=== PATIENT | male | born 1970 | race Caucasian/White ===

== ENCOUNTER → 2023-12-07 06:34 | Day surgery (SDC) | payer OTHER, SELFPAY ==
[2023-12-07 09:13] LABS: Glucose - Point of Care 126 mg/dl (70-99)
== END ==
LOC: GI 06:34
PROVIDERS: ATTENDING PHYSICIAN Internal Medicine Gastroenterology
DX: K31.89 Other diseases of stomach and duodenum (principal); D50.9 Iron deficiency anemia, unspecified; K64.8 Other hemorrhoids; R04.0 Epistaxis
CPT/HCPCS: 45378; 43239; 88305; 82962; 88342

== ENCOUNTER 2023-12-11 09:51 | Emergency (ER) | payer OTHER, SELFPAY ==
[2023-12-11 09:53] VITALS: BP 158/110
--- NOTE | 2023-12-11 10:15 | ED.GENMED ---
History of Present Illness
General
Chief Complaint: Fall
Source: patient
Exam Limitations: none
Time Seen by Provider: 12/11/23 10:02
Nursing documentation reviewed up to this point in time: agreed with
Travel History
Have you had any contact with someone who has COVID-19?: No
Do you have any symptoms of coronavirus? Fever > 100 degrees, chills, cough, shortness of breath, sore throat, loss of taste or smell, muscle aches, or headache?: No
History of Present Illness
History of Present Illness:
52-year-old male past medical history of insulin-dependent diabetes hypertension presents to the ER for evaluation. Patient reports he got out of the bed in the middle of the night (around 1-2 am ) to use the bathroom. He felt lightheaded and had
a witnessed syncopal episode by his . He reports his said she heard a thud and found him on the ground. He does remember feeling lightheaded while getting up to use the bathroom and the next thing he remembers is his on the floor with
him. He reports his told him it took him about a minute to wake up. He did get up and go back to bed. He woke up this morning with bruising to his left orbital region and mild discomfort to left anterior rib area when taking a deep breath.
He denies any headache nausea vomiting. He is not on blood thinners. He does admit however that he just had a endoscopy and colonoscopy on Wednesday. Denies any black or dark stool.
Past History
Past History
ED Past Medical History: Asthma, HTN, IDDM, Hypothyroidism and Other (MIgraines)
ED Past Surgical History: None
Social History
Tobacco: Non-smoker
Alcohol: None
Personal:
Living: with family
Employment: Employed
Phy Exam
General Physical Exam
General Presentation: no apparent distress
General age: appears stated age
General Skin: warm and dry
General Habitus: normal
General Mental: alert
General Hydration: appears well hydrated
ENT Exam
ENT Exam: EOMI, neck supple and other (Patient with ecchymosis to left orbit mild tenderness no entrapment no crepitus)
Cardiovascular Exam
Cardiovascular Exam: regular rate/rhythm, no murmur and normal peripheral pulses
Pulmonary Exam
Pulmonary Exam: lungs clear, no respiratory distress and other (minimal left anterior chest tenderness no ecchymosis/no crepitus no abrasions )
Gastrointestinal Exam
Gastrointestinal Exam: non tender and soft
Neurological Exam
Neurological Exam: alert and oriented x3
Musculoskeletal Exam
Musculoskeletal Exam: full ROM and other (No obvious head injury on exam there is ecchymosis to orbit as documented above no bony cervical spine tenderness)
Skin Exam
Skin Exam: normal color and warm/dry
Psychiatric Exam
Psychiatric Exam: normal mood/affect
Course
Orders/Labs/Results
Orders:
Orders
12/11/23 10:14
Electrocardiogram (*1) Stat
Reason for Study: Abdominal Pain
CT Head W/o Iv Contrast Urgent
Comment:
Reason For Exam: trauma
CT Orbits W/o Iv Contrast Urgent
Comment:
Reason For Exam: left eye ecchymosis/tenderness
Cardiac Monitoring- Treatment ONCE
EKG- Treatment ONCE
IV Insert/Care/Rem.- Treatment PRN
Orthostatic VS- Treatment ONCE
0.9% Sodium Chloride 1000 ml [Nss] 1,000 ml IV BOLUS
12/11/23 10:22
Complete Blood Count/With Diff Urgent
Comprehensive Metabolic Panel Urgent
12/11/23 11:39
Ribs, Left 3 View W/PA Chest CR [CR Ribs-left 3 Vw W/pa Chest] Urgent
Comment:
Reason For Exam: trauma
12/11/23 13:30
Tetanus/Diphth/Acelpertussis [Adacel] 0.5 ml IM .ONCE ONE
Abnormal Lab Results
12/11/23
10:22
MPV 10.8 H fL
(7.4-10.4)
Absolute Neuts (auto) 7.4 H 10^3/uL
(1.4-6.5)
Lymphocytes % 19.3 L %
(20.5-51.1)
Sodium 134 L mmol/L
(135-145)
Creatinine 0.6 L mg/dL
(0.7-1.3)
Glucose 171 H mg/dl
(70-99)
12/11/23 10:22
12/11/23 10:22
Vital Signs
Initial and Last Documented VS:
Initial Vital Signs
Temp Pulse Resp BP Pulse Ox
98.2 F 110 16 158/110 98
12/11/23 09:53 12/11/23 09:53 12/11/23 09:53 12/11/23 09:53 12/11/23 09:53
Last Documented Vital Signs
Temp Pulse Resp BP Pulse Ox
98.2 F 101 16 161/87 98
12/11/23 09:53 12/11/23 13:00 12/11/23 13:00 12/11/23 13:00 12/11/23 13:00
Project Product Manager consulted with Physician
Project Product Manager consulted with physician?: Yes
Name of Physician Consulted: Presley
MDM/Problems Addressed
Differential Diagnosis Includes:
not limited to:
Syncope, orbital fracture first contusion rib fracture versus contusion dehydration anemia electrolyte abnormality
MDM/Problems Addressed:
Patient with syncopal episode in the middle of the night. Patient presented to the ER complaining of bruising to left orbit mild discomfort to left ribs when taking a deep breath. Patient presents awake alert in no acute distress with obvious
ecchymosis to the left orbital region. Patient awake alert no bony cervical spine tenderness. Patient denies any chest pain shortness of breath. Patient recently had endoscopy colonoscopy several days ago. He is not on blood thinners. Patient
initially mild tachycardic in triage. Patient with a stable hemoglobin of 14.[address] head and orbits negative. No acute findings on EKG. mild discomfort with palpation of left anterior rib area no ecchymosis lungs are
clear not hypoxic will check chest x-ray.
Chest x-ray negative patient no acute distress looks well stable for discharge home
*Radiology
Radiology exam reviewed: radiology read reviewed
*Pulse Oximetry
Patient hypoxic: no
*Critical Care Note
Total Time (30-74mins, 75-104mins- exclusive of procedures): Not Applicable
ED Attending Note
-
Portions of this chart may have been created with voice recognition software.� Occasional wrong word or��sound alike� substitutions may have occurred due to the inherent limitations of voice recognition software.
Discharge Plan
Departure
Patient Disposition: Home (Routine Discharge)
Date of Disposition: 12/11/23
Time of Disposition: 13:31
Patient with high blood pressure during this ER visit?: Yes
Condition: Fair
Covid-19: Not Applicable
Discharge Problem:
Syncope, Contusion, Laceration
Instructions: Head Injury in Adults (DC), Contusion (DC), Syncope (Fainting) (DC), Abrasions ED, BLOOD PRESSURE
Prescriptions:
No Action
venlafaxine 75 MG capsule,extended release 24hr
75 mg PO DAILY
irbesartan-hydrochlorothiazide 1 EACH tablet
1 ea PO QPM
atorvastatin 10 MG tablet
5 mg PO QPM
aspirin 81 MG tablet,delayed release (DR/EC)
81 mg PO DAILY
levothyroxine [Synthroid] 50 MCG tablet
150 mcg PO DAILY
omeprazole 20 MG capsule,delayed release(DR/EC)
20 mg PO QPM
metformin 500 MG tablet extended release 24 hr
1,000 mg PO BID
cholecalciferol (vitamin D3) 2,000 UNIT tablet
4,000 unit PO DAILY
Jardiance 25 MG tablet
25 mg PO DAILY
eszopiclone 2 mg Tablet
2 mg PO HS
Lyumjev U-100 Insulin 100 unit/mL Solution
1 sliding scale dose SC DIRECTED
Rx Instructions:
via pump
Referrals:
Sebastián Diaz MD [Family Provider] -
Activity Restrictions/Additional Instructions:
You may take Tylenol for discomfort. Wash abrasion twice a day with soap and water. Pat dry apply small amount of antibiotic ointment to the area. Follow-up with family doctor in the next several days return if any worsening of symptoms.
Interventions
Interventions:
*Risk Screen - Suicide Last Done: 12/11/23 11:00
*General Assessment Last Done: 12/11/23 11:00
*Neglect/Abuse Screening Last Done: 12/11/23 11:00
ED- Fall Risk Assessment Last Done: 12/11/23 10:12
*ED COVID-19 Vaccine History Last Done: 12/11/23 09:53
ED-Musculoskeletal Assessment Last Done: 12/11/23 10:11
ED- Neurological Assessment Last Done: 12/11/23 10:12
ED-Skin Assessment Last Done: 12/11/23 10:09
[2023-12-11 10:28] VITALS: BP 147/89; BP 148/78; BP 154/88; PULSE 104; PULSE 109; PULSE 112
[2023-12-11 10:35] LABS: % Basophils 0.5 % (0-2); % Eosinophils 1.3 % (0-6); % Immature Granulocytes 0.4 % (0-0.5); % Lymphocytes 19.3 % (20.5-51.1); % Monocytes 5.4 % (1.7-9.3); % Neutrophils 73.1 % (42.2-75.2); Absolute Basophils 0.1 10^3/uL (0-0.2); Absolute Eosinophils 0.1 10^3/uL (0-0.7); Absolute Monocytes 0.6 10^3/uL (0.1-0.6); Absolute Neutrophils 7.4 10^3/uL (1.4-6.5); Hemoglobin 14.1 g/dL (13.0-18.0); Mean Corp Hgb Conc. 34.4 g/dL (33.0-37.0); Mean Corpuscular Hgb 28.8 pg (27.0-31.0); Mean Corpuscular Volume 83.8 fL (80.0-94.0); Mean Platelet Volume 10.8 fL (7.4-10.4); Nucleated Red Blood Cells % 0 % (-); Platelet Count 230 10^3/uL (130-400); Red Blood Cell Count 4.89 10^6/uL (4.70-6.10); Red Cell Dist. Width 14.1 % (11.5-14.5); White Blood Cell Count 10.1 10^3/uL (4.8-10.8)
[2023-12-11 10:50] LABS: ALT (SGPT) 34 U/L (0-50); AST (SGOT) 32 U/L (17-59); Albumin 4.6 g/dl (3.5-5.0); Alkaline Phosphatase 80 U/L (38-126); Blood Urea Nitrogen 15 mg/dl (9-20); Calcium 9.5 mg/dl (8.4-10.2); Carbon Dioxide 27 mmol/L (22-30); Chloride 98 mmol/L (98-107); Glucose 171 mg/dl (70-99); Potassium 4.1 mmol/L (3.5-5.1); Sodium 134 mmol/L (135-145); Total Bilirubin 0.7 mg/dl (0.2-1.3); Total Protein 7.3 g/dl (6.3-8.2); eGFR > 60.00
[2023-12-11] MEDS: NSS 1000 IV (10:55)
[2023-12-11 11:01] VITALS: BP 164/75
[2023-12-11 12:51] VITALS: BP 161/87
[2023-12-11 13:00] VITALS: BP 161/87
[2023-12-11] MEDS: ADACEL 0.5 ML IM (13:44)
== END 2023-12-11 14:09 | disposition home or self-care (01) ==
LOC: EMR 09:51
PROVIDERS: Nurse Practitioner; EMERGENCY PHYSICIAN Emergency Medicine; FAMILY PHYSICIAN Family Medicine
DX: R55 Syncope and collapse (principal); S00.12XA Contusion of left eyelid and periocular area, initial encounter; R07.1 Chest pain on breathing; T14.8XXA Other injury of unspecified body region, initial encounter; R00.0 Tachycardia, unspecified; W18.30XA Fall on same level, unspecified, initial encounter; Y92.002 Bathroom of unspecified non-institutional (private) residence as the place of occurrence of the external cause; E11.9 Type 2 diabetes mellitus without complications; J45.909 Unspecified asthma, uncomplicated; I10 Essential (primary) hypertension; E03.9 Hypothyroidism, unspecified; M19.90 Unspecified osteoarthritis, unspecified site; D50.9 Iron deficiency anemia, unspecified; G43.909 Migraine, unspecified, not intractable, without status migrainosus; F32.A Depression, unspecified; Z79.4 Long term (current) use of insulin; Z79.82 Long term (current) use of aspirin; Z98.890 Other specified postprocedural states; Z88.1 Allergy status to other antibiotic agents; Z91.048 Other nonmedicinal substance allergy status
CPT/HCPCS: 99285; 96360; 90471; 70450; 70480; 71101; 80053; 85025; 90715; 93005

== ENCOUNTER 2023-12-28 13:42 | Outpatient (RCR) | payer OTHER, SELFPAY ==
[2023-12-21 13:45] VITALS: BP 144/101
[2023-12-21] MEDS: NSS 250 IV (14:00)
[2023-12-21] MEDS: VENOFER 110 MG IV (14:01)
[2023-12-21 15:05] VITALS: BP 133/86
[2023-12-28 13:54] VITALS: BP 154/91
[2023-12-28] MEDS: VENOFER 110 MG IV (14:07)
[2023-12-28 15:12] VITALS: BP 151/87
== END 2023-12-29 09:06 | disposition home or self-care (01) ==
LOC: OID 13:42
PROVIDERS: ATTENDING PHYSICIAN Family Medicine
DX: D50.9 Iron deficiency anemia, unspecified (principal); R53.82 Chronic fatigue, unspecified; T45.4X5A Adverse effect of iron and its compounds, initial encounter; Y93.89 Activity, other specified
CPT/HCPCS: 96365; J1756